=== PATIENT | female | born 2000 | race Caucasian/White ===

== ENCOUNTER 2023-05-25 17:07 | Observation (INO) | payer BC, SELFPAY ==
[2023-05-25] VITALS (18 sets, daily range): BP systolic 90–138; BP diastolic 49–83; PULSE 111–162; RESP 15–29; TEMP 36.6; O2SAT 93–97; BMI 34.9
--- NOTE | ~2023-05-25 | XR_ITS ---
EXAMINATION: XR chest 1V portable Exam Date/Time: 05/25/2023 17:15 BEATER ENGINEER HISTORY: ROBYN Comparison: None. RESULT: Lines, tubes, and devices: None. Lungs and pleura: Clear. Cardiomediastinal silhouette: Normal. Other: No acute osseous or upper abdominal finding. IMPRESSION: No acute cardiopulmonary process. Reviewed, dictated and finalized at location K. ER ENGINEER
--- NOTE | ~2023-05-25 | XR_ITS ---
XR chest 2V INDICATION: Shortness of breath TECHNIQUE: 2 view chest. FINDINGS: 05/25/2023 There is mild bilateral interstitial prominence and peribronchial cuffing. There is no focal consoli dation, pleural effusion, or pneumothorax. The cardiomediastinal silhouette is normal. IMPRESSION: 1. Findings most consistent with bronchiolitis versus an atypical or viral pneumonia. Reviewed, dictated and finalized at location B. DRIVING SUPERINTENDENT IMPRESSION: 1. Findings most consistent with bronchiolitis versus an atypical or viral pne [facility].
--- NOTE | 2023-05-25 17:11 | ECG_ITS ---
Measurements Intervals [place] Rate: 155 P: 79 AR: 124 QRS: 96 QRSD: 82 T: 71 QT: 300 QTc: 482 Interpretive Statements SINUS TACHYCARDIA RIGHT AXIS DEVIATION RSR' IN V1 OR V2, PROBABLY NORMAL VARIANT NONSPECIFIC ST & T-WAVE ABNORMALITY- ANTEROLAT/INF LEADS BASELINE ARTIFACT- I, II, AVR, AVL, V1 ABNORMAL ECG NO PREVIOUS ECG AVAILABLE FOR COMPARISON Electronically Signed On 05-25-2023 20:24:20 MORTGAGE LOAN COORDINATOR by Andrew Singh D.O.
--- NOTE | 2023-05-25 17:12 | ED.SOB ---
HPI - SOB/Dyspnea General Chief Complaint: Shortness of Breath/Dyspnea Stated Complaint: resp History of Present Illness HPI Narrative: Patient is a 22-year-old healthy female here with shortness of breath. She states that yesterday she began having some wheezing and shortness of breath as well as a cough. She took Mucinex and NyQuil without relief of her symptoms. Today she felt significantly short of breath went to an urgent care where they found her O2 saturations in the low 90s. EMS was called and she received 2 duonebs en route. She notes improved work of breathing after the nebulizers. She was around family for the holidays but does not believe anyone was sick. She notes her friend recently recovered from bronchitis and her friend's mother tested positive for RSV recently as well. No prior history of PE/DVT. No history of asthma. Related Data Home Medications Medication Instructions Recorded Confirmed No Home Medications 11/03/19 11/03/19 Allergies Allergy/AdvReac Type Severity Reaction Status Date / Time No Known Allergies Allergy Verified 05/25/23 20:06 Review of Systems Review of Systems: All systems reviewed & are unremarkable except as noted in HPI and below PMFSH Family History Family History (Updated 11/03/19 @ 11:27 by Uma Arango CMA) Mother Diabetes mellitus Social History Social History (Updated 11/03/19 @ 11:28 by Uma Arango [facility]) Smoking status: Never smoker Alcohol intake: unknown Substance use: never Exam Narrative: GENERAL: Well-appearing, well-nourished, and in no acute distress. HEAD: Normocephalic, atraumatic. EYES: PERRLA and EOMI. ENT: Nares clear. Mucous membranes moist. NECK: Supple. CHEST: Bilateral wheeze, increased work of breathing. No respiratory distress. HEART: tachycardia. Normal peripheral pulses. ABDOMEN: Soft, nontender, nondistended. EXTREMITIES: Normal range of motion. No edema. SKIN: Warm, dry, no rash. NEURO: No focal deficits. Alert and oriented x3. PSYCH: Normal mood and affect. Course Course Emergency Course: Patient seen evaluated on EMS arrival. Tachycardic, has some increased work of breathing with bilateral wheeze. She has had multiple sick contacts, anticipate she likely has a viral or bacterial pulmonary process. Basic lab work ordered including D-dimer given tachycardia and shortness of breath. Will additionally do portable chest x-ray and COVID, influenza, RSV testing. Patient re-evaluated, feeling quite a bit better at this time, heart rate is improved to 120s. Awaiting results at this time. WBC 23.8, Hgb 16.3, d-dimer negative. CMP within normal limits. Troponin negative. BNP 76. COVID, influenza, RSV negative. Additional IV ordered given persistent tachycardia. In context of WBC of 23.8, will give antibiotics for pulmonary coverage as well as draw blood cultures. Spoke with Dr. Teixeira who accepts patient for admission. Vital Signs Vital signs: Vital Signs Temperature 97.8 F 05/25/23 17:05 Pulse Rate 162 H 05/25/23 17:05 Respiratory Rate 29 H 05/25/23 17:05 Blood Pressure 130/78 05/25/23 17:05 Pulse Oximetry 97 05/25/23 17:05 Oxygen Delivery Room Air 05/25/23 17:05 Temperature 97.8 F 05/25/23 17:05 Pulse Rate 116 H 05/25/23 20:07 Respiratory Rate 19 05/25/23 20:07 Blood Pressure 107/70 05/25/23 20:07 Pulse Oximetry 97 05/25/23 20:07 Oxygen Delivery Room Air 05/25/23 17:16 MDM - SOB/Dyspnea Lab Data 05/25/23 17:19 05/25/23 17:19 Labs: Lab Results 05/25/23 05/25/23 05/25/23 Range/Units 17:17 17:19 17:36 WBC 23.8 H (4.5-10.0) K/mm3 RBC 5.52 H (4.2-5.4) M/mm3 Hgb 16.3 H (12.0-15.0) g/dL Hct 48.6 H (37.0-47.0) % MCV 88.0 (80-100) fl MCH 29.5 (26-34) pg MCHC 33.5 (32-36) g/dl RDW 12.8 (11.5-14.5) % Plt Count 308 (150-375) k/mm3 MPV 10.1 (7.4-10.4) fl Immature Gran
[2023-05-25] MEDS: SODIUM CHLORIDE 0.9% IV 1,000 ML 999 ML IV CONT ×4 (17:24→22:18)
[2023-05-25 17:42] LABS: Basophils Absolute Auto 0.1 K/mm3 (0.0-0.1); Basophils Percent Auto 0.3 % (0.2-1.2); Eosinophils Absolute Auto 0.2 K/mm3 (0-0.3); Eosinophils Percent Auto 0.7 % (0-4.4); Hematocrit 48.6 % (37.0-47.0); Hemoglobin 16.3 g/dL (12.0-15.0); Immature Granulocyte Absolute 0.17 K/mm3 (0.00-0.031); Immature Granulocyte Percent A 0.7 % (0-0.5); Lymphocytes Percent Auto 8.4 % (18.3-44.2); Mean Corpuscular HGB Conc 33.5 g/dl (32-36); Mean Corpuscular Hemoglobin 29.5 pg (26-34); Mean Platelet Volume 10.1 fl (7.4-10.4); Monocytes Absolute Auto 1.1 K/mm3 (0.1-0.6); Monocytes Percent Auto 4.7 % (2.6-8.5); Neutrophils Absolute Auto 20.3 K/mm3 (1.3-6.7); Neutrophils Percent Auto 85.2 % (45.5-73.1); Platelet Count Result 308 k/mm3 (150-375); Red Blood Count 5.52 M/mm3 (4.2-5.4); Red Cell Distribution Width 12.8 % (11.5-14.5); White Blood Count 23.8 K/mm3 (4.5-10.0)
[2023-05-25 17:56] LABS: Alanine Aminotransferase 46 U/L (6-35); Albumin Level 5.1 g/dL (3.5-5.1); Alkaline Phosphatase 91 U/L (38-126); Anion Gap 16 mmol/L (8-16); Aspartate Amino Transferase 36 U/L (14-36); Blood Urea Nitrogen 9 mg/dL (7-17); Calcium 9.5 mg/dL (8.4-10.2); Carbon Dioxide 20 mmol/L (22-30); Chloride 106 mmol/L (98-107); Estimated CRCL calculation 116 ml/min; Estimated Glomerular Filt Rate > 60; Glucose 139 mg/dL (65-110); Magnesium 2.1 mg/dL (1.6-2.3); Potassium 3.7 mmol/L (3.4-5.0); Sodium 142 mmol/L (137-145)
[2023-05-25 18:04] LABS: NT Pro B Type Natriuretic Pept 76 pg/mL (19.9-100); Troponin I < 0.012 ng/mL (0.000-0.034)
[2023-05-25 18:17] LABS: Influenza A QL RT-PCR Negative (Negative); Influenza B QL RT-PCR Negative (Negative); RSV RNA, RT-PCR Negative (Negative); SARS-CoV-2 RNA PCR Negative (Negative)
[2023-05-25 18:34] LABS: D Dimer 0.37 ug/mL (<0.48)
[2023-05-25] MEDS: methylPREDNISolone SOD SUCC 125 MG VIAL IV PUSH (18:41)
[2023-05-25] MEDS: IPRATROPIUM BR 0.02% INH SOLN 0.5 MG/2.5 ML VIAL INHALATION (18:51)
[2023-05-25] MEDS: ALBUTEROL SULFATE NEB 2.5 MG/3 ML INH INHALATION (18:52)
[2023-05-25] MEDS: DOXYCYCLINE HYCLATE 100 MG TABLET PO (21:12)
[2023-05-25 21:29] LABS: Lactic Acid Reflex 5.1 mmol/L (0.7-2.0)
[2023-05-25 21:36] LABS: CRP 2.1 mg/dL (<1.0)
[2023-05-25 21:51] LABS: Procalcitonin 0.1 ng/mL
--- NOTE | 2023-05-25 23:14 | PM.IMHP ---
H&P: HPI History of Present Illness Date/Time: 05/25/23 23:14 Chief Complaint: Difficulty breathing Narrative: 22-year-old female with medical history of obesity and vaping who presented to the ER from urgent care with due to difficulty breathing. The patient reports that she has been having 2 days of shortness of breath, nonproductive cough. She felt as if she could not catch her breath. They had a pulse oximeter at home that they bought during [facility] and they found the patient's oxygen level at home to be 89% and her heart rate on the pulse oximeter was in the 130s to 140s. Patient denies any chest pain. She denies any fevers or chills but had been having intermittent ?hot flashes and sweats? for about a week. She reported that the episodes seem to happen when she was up and exerting herself and entering different environment such as a store. She has had associated nausea today with 3 episodes of vomiting. She reports that she vomited up the doxycycline she was given in the ER. Emesis has been clear non bilious nonbloody. She denies any diarrhea. She has not had any abdominal pain but has she is generally decreased appetite. Prior to today she thought that she was eating and drinking adequate amounts of fluid. She denies any calf pain or swelling. Due to her tachycardia and symptoms a D-dimer was performed in the ER which was normal. Her friend was recently diagnosed with bronchitis and then several days later the friend's mother was diagnosed with RSV. The patient viral PCRs were negative in the ER. She has chronic nasal congestion denies any postnasal drip or sore throat. She denies any rashes. She denies any history of asthma but does vape and has done so for 6 years. She denies any history of wheezing or frequent respiratory infections. In the ER she found to be in sinus tachycardia with a rate high as the 140s but rate has improved after 3 L of fluid down to the 110s to 120s. She reports that she feels significantly improved after receiving a 2nd nebulizer treatment. Review of Systems Review of Systems: 12 systems were reviewed with pertinent positives and negatives per HPI. Except as documented in the HPI, all other systems were reviewed and are negative. [facility] Past Medical History Medical History (Updated 05/25/23 @ 23:18 by Carmelina Teixeira DO) Current every day vaping Obesity (BMI 30.0-34.9) Surgical History Surgical History (Updated 05/25/23 @ 23:18 by Carmelina Teixeira DO) No significant past surgical history Family History Family History (Updated 05/26/23 @ 00:44 by Carmelina Teixeira DO) Mother Diabetes mellitus Father Asthma Sibling Asthma Social History Social History (Updated 05/26/23 @ 00:46 by Carmelina Teixeira DO) Social History: Patient lives at home with her mother and father. She has a cat. She has been vaping nicotine products for 6 years. She smokes marijuana about every other day. She denies any significant alcohol use. 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 Code status: Full code Surrogate decision maker: Parents Smoking status: Current every day smoker Tobacco type: e-cigarettes/vaping Second hand tobacco smoke exposure: Yes Alcohol intake: never Drinks per week: 3 Substance use: current Substance use type: marijuana Last use: 05/23/23 Lack of Transportation: No Lack of Food: Never True Current Housing: I Have Housing Concerned About Future Housing: No Difficulty Paying Gas/Electric Bills: No Difficulty Paying for Meds: No Currently Unemployed: No Education: High School Diploma/GED Difficulty w/ Childcare or Family Care: No Spiritual care concerns: No Meds Home Medications and Allergies Home Medications Medication Instructions Recorded Confirmed Type No Home Medications 11/03/19 05/25/23 History Allergies Allergy/AdvReac Type Severity Reaction Status Date / Time No Known Allergies Allergy Veri
--- NOTE | 2023-05-25 23:45 | ADMGEN ---
This patient, Sandy Emerson, was admitted to [facility] Surg Room 313-01. Patient/family oriented to hospital policies and general routines including ID bracelet, bed and alarms, visiting hours, pain management, procedures, bathroom and other care routines, personal items, smoking policy, room service/diet, and visiting hours. Information on how to activate the Rapid Response Team has been discussed. Patient/Family are encouraged to report perceived risks to care and to ask questions if they do not understand what they are told or what they should do.
[2023-05-26] VITALS (17 sets, daily range): BP systolic 112–131; BP diastolic 66–79; PULSE 68–116; RESP 16–20; TEMP 36.1–36.8; O2SAT 93–100
[2023-05-26 00:02] LABS: Reflex Lactic Acid Yes or No Add Lactic
[2023-05-26 01:06] LABS: Appearance Urine Clear (Clear); Bilirubin Urine Negative (Negative); Blood Urine Negative (Negative); Color Urine Yellow (Yellow); Glucose Urine UA Negative (Negative); Ketones Urine Trace mg/dL (Negative); Leukocyte Esterase Ur Negative LEU/UL (Negative); Nitrate Urine Negative (Negative); Protein Urine Negative (Negative); Specific Grav Ur 1.016 (1.001-1.035); Urobilinogen Urine 0.2 mg/dL (<2.0); pH Urine 5.5 (5.0-9.0)
[2023-05-26 01:10] LABS: Add Urine Microscopic? YES
[2023-05-26 01:20] LABS: Lactic Acid 3.7 mmol/L (0.7-2.0)
[2023-05-26] MEDS: LEVALBUTEROL NEB 1.25 MG/3 ML INHALATION ×4 (01:55→20:51)
[2023-05-26] MEDS: LACTATED RINGERS 1,000 ML 150 ML IV CONT ×2 (06:24)
[2023-05-26 06:50] LABS: Basophils Percent Auto 0.1 % (0.2-1.2); Hematocrit 41.5 % (37.0-47.0); Hemoglobin 13.6 g/dL (12.0-15.0); Immature Granulocyte Absolute 0.22 K/mm3 (0.00-0.031); Lymphocytes Absolute Auto 0.86 K/mm3 (0.9-3.2); Lymphocytes Percent Auto 4.1 % (18.3-44.2); Mean Corpuscular HGB Conc 32.8 g/dl (32-36); Mean Corpuscular Hemoglobin 29.1 pg (26-34); Mean Corpuscular Volume 88.9 fl (80-100); Monocytes Absolute Auto 0.6 K/mm3 (0.1-0.6); Monocytes Percent Auto 2.8 % (2.6-8.5); Neutrophils Absolute Auto 19.3 K/mm3 (1.3-6.7); Platelet Count Result 287 k/mm3 (150-375); Red Blood Count 4.67 M/mm3 (4.2-5.4); Red Cell Distribution Width 13.1 % (11.5-14.5)
[2023-05-26 07:00] LABS: Alanine Aminotransferase 17 U/L (6-35); Albumin Level 4.1 g/dL (3.5-5.1); Alkaline Phosphatase 74 U/L (38-126); Anion Gap 9 mmol/L (8-16); Aspartate Amino Transferase 21 U/L (14-36); Bilirubin,Total 0.6 mg/dL (0.2-1.3); Blood Urea Nitrogen 7 mg/dL (7-17); Calcium 8.8 mg/dL (8.4-10.2); Carbon Dioxide 19 mmol/L (22-30); Chloride 111 mmol/L (98-107); Estimated CRCL calculation 154 ml/min; Estimated Glomerular Filt Rate > 60; Glucose 138 mg/dL (65-110); Potassium 3.9 mmol/L (3.4-5.0); Sodium 139 mmol/L (137-145)
[2023-05-26] MEDS: predniSONE 20 MG TABLET 40 MG PO (08:28)
[2023-05-26] MEDS: ENOXAPARIN 40 MG/0.4 ML SYRINGE SUB-Q (08:28)
[2023-05-26 11:01] LABS: Amphetamine Screen Urine Negative (Negative); Barbiturate Screen Urine Negative (Negative); Benzodiazepines Screen Urine Negative (Negative); Cannabinoid Screen Urine Positive (Negative); Cocaine Screen Urine Negative (Negative); Methadone Screen Urine Negative (Negative); Opiate Screen Urine Negative (Negative); Phencyclidine Screen Urine Negative (Negative)
[2023-05-26] MEDS: methylPREDNISolone SOD SUCC 125 MG VIAL 60 MG IV PUSH ×2 (11:28→20:47)
[2023-05-26] MEDS: DOXYCYCLINE 100 MG/NS 100 ML 100 MG/100 ML BAG IVPB ×2 (11:29→20:47)
--- NOTE | 2023-05-26 13:04 | PM.IMPN ---
Progress Note: A&P Assessment and Plan (1) Current every day vaping: Code(s): Z72.89 - Other problems related to lifestyle Status: Acute (2) SIRS (systemic inflammatory response syndrome): Code(s): R65.10 - Systemic inflammatory response syndrome (SIRS) of non-infectious origin without acute organ dysfunction Status: Acute (3) Acute respiratory infection: Code(s): J22 - Unspecified acute lower respiratory infection Status: Acute (4) Leukocytosis: Qualifiers: Leukocytosis type: unspecified Qualified Code(s): D72.829 - Elevated white blood cell count, unspecified Code(s): D72.829 - Elevated white blood cell count, unspecified Status: Acute (5) Acute dehydration: Code(s): E86.0 - Dehydration Status: Acute (6) Tachycardia: Code(s): R00.0 - Tachycardia, unspecified Status: Acute (7) Chronic back pain: Code(s): M54.9 - Dorsalgia, unspecified; G89.29 - Other chronic pain Status: Acute (8) Chronic neck pain: Code(s): M54.2 - Cervicalgia; G89.29 - Other chronic pain Status: Acute Plan 1. Acute viral pneumonia vs atypical bacterial pna ct ceftriaxone/doxy f/u wbc f/u lactic acid, bolus as necessary covid/rsv/influenza a/b negative 4L NS given, some LR given at 150 ml/hr. continuous IVF No longer needed pt is off o2 d-dimer neg for PE levabuterol q6 scheduled- pt greatly improving on nebs. May need to be discharged on albuterol inhalers. 2. Possible acute asthma exacerbation triggered by smoking use and/or pna ct solumedrol 60 mg q8 iv pt's HR decreased to a normal level after 1 dose was given consider de-escalating tomorrow to PO prednisone pt's symptoms have improved pt is off o2 On Tele currently Full code dvt prophylaxis with lovenox Time Spent With Patient Time: 45 min Subjective Date/time seen: 05/26/23 13:04 Interval history: still having whole body sweating. feels better since being here. Feels better with breathing treatments and steroids. wants to go home, but is still not stable. answered questions to her and her mother. Exam Narrative: Weight 101.3 kg BMI 35 Const: Other: Obese, no acute distress, sitting on the side of the ER avni ZIMMERMT: Other: Mucous membranes are tacky, no oral pharyngeal erythems, crowded posterior oropharynx Eyes: Other: Pupils were slightly asymmetric with left pupil being slightly more dilated than the right but pupils constrict equally, extraocular movements intact, no conjunctival pallor Neck: Other: Large neck circumference, no JVD, no tenderness palpation, no significant lymphadenopathy Resp: Other: decreased bs at bases bl, diffuse wheezing posteriorly, no increased work of breathing Cardio: Other: tachycardia improved, borderline tachycardic, bounding pulses bilateral radial, no JVD GI: Other: Soft, nontender, nondistended, positive bowel sounds Skin: Other: diffuse whole body sweating Neuro: Other: Alert oriented, speech is clear, no facial asymmetry, no localizing neurologic deficits noted during conversation Extrem: Other: No clubbing, cyanosis or edema, moves all extremities equally, equal strength Psych: Other: Appropriate mood and affect, pleasant and cooperative, judgment and insight intact Objective Data Vital Signs Vital Signs: Vital Signs - 24 hr 05/25/23 17:05 05/25/23 17:16 05/25/23 18:54 Temperature 97.8 F Pulse Rate 162 H 114 H Respiratory Rate 29 H 17 Blood Pressure 130/78 Pulse Oximetry 97 Oxygen Delivery Room Air Room Air 05/25/23 19:32 05/25/23 19:45 05/25/23 19:57 Temperature Pulse Rate 120 H 125 H 123 H Respiratory Rate 23 H 25 H 21 H Blood Pressure 90/69 L 92/49 L Pulse Oximetry 95 94 93 Oxygen Delivery 05/25/23 20:00 05/25/23 20:01 05/25/23 20:07 Temperature Pulse Rate 118 H 120 H 116 H Respiratory
[2023-05-26 13:29] LABS: Lactic Acid Reflex 0.8 mmol/L (0.7-2.0)
[2023-05-26] MEDS: ACETAMINOPHEN 325 MG TABLET 650 MG PO (18:41)
[2023-05-27] VITALS (13 sets, daily range): BP systolic 108–113; BP diastolic 69–74; PULSE 69–105; RESP 14–18; TEMP 36.5; O2SAT 91–97
[2023-05-27] MEDS: LEVALBUTEROL NEB 1.25 MG/3 ML INHALATION ×3 (01:30→15:26)
[2023-05-27] MEDS: methylPREDNISolone SOD SUCC 125 MG VIAL 60 MG IV PUSH ×2 (06:24→13:58)
[2023-05-27 06:47] LABS: Basophils Percent Auto 0.2 % (0.2-1.2); Hematocrit 41.7 % (37.0-47.0); Hemoglobin 13.8 g/dL (12.0-15.0); Immature Granulocyte Absolute 0.21 K/mm3 (0.00-0.031); Immature Granulocyte Percent A 0.9 % (0-0.5); Lymphocytes Absolute Auto 1.17 K/mm3 (0.9-3.2); Lymphocytes Percent Auto 4.7 % (18.3-44.2); Mean Corpuscular HGB Conc 33.1 g/dl (32-36); Mean Corpuscular Hemoglobin 29.6 pg (26-34); Mean Corpuscular Volume 89.5 fl (80-100); Mean Platelet Volume 10.1 fl (7.4-10.4); Monocytes Absolute Auto 0.9 K/mm3 (0.1-0.6); Monocytes Percent Auto 3.7 % (2.6-8.5); Neutrophils Absolute Auto 22.3 K/mm3 (1.3-6.7); Neutrophils Percent Auto 90.5 % (45.5-73.1); Platelet Count Result 304 k/mm3 (150-375); Red Blood Count 4.66 M/mm3 (4.2-5.4); Red Cell Distribution Width 13.2 % (11.5-14.5); White Blood Count 24.6 K/mm3 (4.5-10.0)
[2023-05-27 07:24] LABS: Anion Gap 9 mmol/L (8-16); Blood Urea Nitrogen 10 mg/dL (7-17); Calcium 8.5 mg/dL (8.4-10.2); Carbon Dioxide 19 mmol/L (22-30); Chloride 111 mmol/L (98-107); Estimated CRCL calculation 154 ml/min; Estimated Glomerular Filt Rate > 60; Glucose 131 mg/dL (65-110); Magnesium 2.5 mg/dL (1.6-2.3); Potassium 3.9 mmol/L (3.4-5.0); Sodium 139 mmol/L (137-145)
[2023-05-27] MEDS: ENOXAPARIN 40 MG/0.4 ML SYRINGE SUB-Q (08:56)
[2023-05-27] MEDS: DOXYCYCLINE 100 MG/NS 100 ML 100 MG/100 ML BAG IVPB (10:36)
--- NOTE | 2023-05-27 16:56 | PM.DS ---
DS: Admitting Diagnosis Discharge Date 05/27/23 Admitting Diagnosis shortness of breath DS: Discharge Diagnosis Discharge Diagnosis (1) Current every day vaping: Code(s): Z72.89 - Other problems related to lifestyle Status: Acute (2) Leukocytosis: Qualifiers: Leukocytosis type: unspecified Qualified Code(s): D72.829 - Elevated white blood cell count, unspecified Code(s): D72.829 - Elevated white blood cell count, unspecified Status: Acute (3) Acute respiratory infection: Code(s): J22 - Unspecified acute lower respiratory infection Status: Acute DS: Summary Hospital Course Hospital Course: 22F w/ no PMH aside from chronic marijuana use and vaping presented with shortness of breath. She was treated with solumedrol and duonebs along with ceftriaxone and doxycycline. On day of discharge, 05/27/23, she is asymptomatic and stable for discharge to home. She was counseled extensively along with her mother present on the dangers of marijuana smoking and vaping. She acknowledged and reports she will quit. She is encouraged to follow up with her PCP and eventual pulmonology f/u to evaluate further any underlying lung conditions. Discharged on albuterol inhaler in the interim. Home with 3 more days of prednisone. Repeat CBC in 5 days to f/u on leukocytosis which was likely 2/2 to systemic steroid administration. More than 30 minutes spent on discharge planning and documentation. Time Spent with Patient Time attestation: Total time spent providing and/or coordinating discharge services: Exam Const: General: cooperative and no acute distress Resp: Effort & Inspection: normal respiratory effort Auscultation: wheezes expiratory wheezes (scant) Cardio: Rate: regular rate Rhythm: regular rhythm Heart sounds: S1 normal heart sound present and S2 normal heart sound present GI: GI Palp: No abdominal tenderness Auscultation: normal bowel sounds DS: Data Data Completed and Pending Labs on day of discharge: Labs from last 24 hours 05/27/23 06:13 WBC 24.6 H RBC 4.66 Hgb 13.8 Hct 41.7 MCV 89.5 MCH 29.6 MCHC 33.1 RDW 13.2 Plt Count 304 MPV 10.1 Immature Gran % (Auto) 0.9 H Neut % (Auto) 90.5 H Lymph % (Auto) 4.7 L Lee % (Auto) 3.7 Eos % (Auto) 0.0 Baso % (Auto) 0.2 Lymph # (Auto) 1.17 Lee # (Auto) 0.9 H Eos # (Auto) 0.0 Baso # (Auto) 0.0 Abs Immat Gran (auto) 0.21 H Absolute Neuts (auto) 22.3 H Absolute Nucleated RBC 0.0 Nucleated RBC % 0.0 Sodium 139 Potassium 3.9 Chloride 111 H Carbon Dioxide 19 L Anion Gap 9 BUN 10 Creatinine 0.60 L Estim Creat Clear Calc 154 Estimated GFR > 60 Glucose 131 H Calcium 8.5 Magnesium 2.5 H Preliminary micro results at discharge 05/25/23 20:55 Blood Culture - Preliminary Blood 05/25/23 20:55 Blood Culture - Preliminary Blood Discharge Plan Discharge Attending physician on discharge: Joselyn Jenkins Discharging Clinician: Joselyn Jenkins Patient Disposition: Home, Self-Care Activity: may shower Diet: as tolerated Patient Instructions: How to Stop Smoking (DC), Leukocytosis (GEN) Stand Alone Forms: General Discharge Information Follow-up/Referrals: Ruby,Merlin Sorto, DO [Primary Care Provider] - (follow up on lung conditions, referral to pulmonology) Discharge Medications: New albuterol sulfate 90 mcg/actuation HFA aerosol inhaler 2 puff inhalation QID PRN (Reason: shortness of breath or wheezing) Qty: 6.7 2RF No Action No Home Medications Date of admission: 05/25/23 21:15 Primary Care Provider: RubyMerlin Admitting Provider: Carmelina Teixeira Attending physician on admission: Carmelina Teixeira Condition: Stable
[2023-05-29 02:22] LABS: Legionella pneumophila Ag Ur Not Detected (Not Detected)
[2023-05-29 22:16] LABS: Pneumococcal Antigen Urine Not Detected (Not Detected)
== END 2023-05-27 17:45 | disposition home or self-care (01) ==
LOC: ANHED 21:20 → ANH3MEDSUR 05-26 04:37
PROVIDERS: Internal Medicine; Admitting Provider Internal Medicine; Emergency Provider Student in an Organized Health Care Education/Training Program; PCP Pediatrics; Visit Provider General Practice
DX: J22 Unspecified acute lower respiratory infection (principal); R65.10 Systemic inflammatory response syndrome (SIRS) of non-infectious origin without acute organ dysfunction; B96.89 Other specified bacterial agents as the cause of diseases classified elsewhere; D72.829 Elevated white blood cell count, unspecified; Z72.89 Other problems related to lifestyle; F17.290 Nicotine dependence, other tobacco product, uncomplicated; E86.0 Dehydration; G89.29 Other chronic pain; M54.2 Cervicalgia; M54.9 Dorsalgia, unspecified; R94.31 Abnormal electrocardiogram [ECG] [EKG]; R63.0 Anorexia; Z20.822 Contact with and (suspected) exposure to COVID-19; E66.9 Obesity, unspecified; Z68.35 Body mass index [BMI] 35.0-35.9, adult; F12.90 Cannabis use, unspecified, uncomplicated
CPT/HCPCS: 36415; 71045; 71046; 80048; 80053; 80307; 81001; 81025; 83605; 83735; 83880; 84145; 84484; 85025; 85380; 86140; 87040; 87076; 87185; 87449; 87637; 87899; 93005; 94640; 96361; 96365; 96366; 96372; 96375; 96376; 99285; A9270; G0378; J0696; J1650; J2930; J7030; J7120; J7512